=== PATIENT | male | born 1985 | race Caucasian/White ===

== ENCOUNTER 2018-04-01 04:01 | Inpatient (IN) | payer SELFPAY ==
[~2018-04-01] VITALS: Ht 175.3 cm; Wt 81.8 kg
[2018-04-01 05:11] LABS: BASOPHILS 0.2 % (0-2); EOSINOPHILS 0.3 % (0-7); HEMATOCRIT 39.4 % (42.0-54.0); HEMOGLOBIN 13.6 g/dL (13.5-17.5); IMMATURE GRANULOCYTES 0.4 % (0-5); LYMPHOCYTES 10.7 % (15-50); MCHC 34.5 g/dL (31.0-37.0); MCV 86.8 fL (80.0-100.0); MEAN PLATELET VOLUME 9.3 fL (7.4-10.4); MONOCYTES 9.9 % (2-11); NEUTROPHILS 78.5 % (40-80); PLATELET COUNT 278 10x3/uL (130-400); RBC 4.54 10x6/uL (4.20-6.10); RDW 13.3 % (11.5-14.5); WBC 18.3 10x3/uL (4.8-10.8)
[2018-04-01 05:32] LABS: ALBUMIN 3.2 g/dL (3.4-5.0); ALKALINE PHOSPHATASE 72 U/L (46-116); ALT (SGPT) 30 U/L (10-68); BILIRUBIN - TOTAL 1.14 mg/dL (0.2-1.3); CALC OSMOLALITY 269 mosm/kg (275-300); CARBON DIOXIDE 28.1 mmol/L (21.0-32.0); CHLORIDE - SERUM 97 mmol/L (98-107); CREATININE - SERUM 0.9 mg/dL (0.6-1.3); GLUCOSE 118 mg/dL (74-106); POTASSIUM - SERUM 3.6 mmol/L (3.5-5.1); PROTEIN - SERUM 7.3 g/dL (6.4-8.2); SODIUM 132 mmol/L (136-145); UREA NITROGEN 25 mg/dL (7-18); eGFR NON AFRICAN AMERICAN > 90 mL/min (90-120)
[2018-04-01 10:53] VITALS: BP 132/80
[2018-04-01 16:04] VITALS: BP 152/55
[2018-04-01 20:52] VITALS: BP 105/69
[2018-04-02 03:43] VITALS: BP 122/82
[2018-04-02 04:42] VITALS: BP 105/69; Ht 175.3 cm; Wt 81.8 kg
[2018-04-02 05:58] LABS: BASOPHILS 0.2 % (0-2); EOSINOPHILS 0.8 % (0-7); HEMATOCRIT 37.6 % (42.0-54.0); HEMOGLOBIN 12.9 g/dL (13.5-17.5); IMMATURE GRANULOCYTES 0.6 % (0-5); LYMPHOCYTES 7.9 % (15-50); MCHC 34.3 g/dL (31.0-37.0); MCV 87.4 fL (80.0-100.0); MEAN PLATELET VOLUME 9.7 fL (7.4-10.4); NEUTROPHILS 81.5 % (40-80); PLATELET COUNT 272 10x3/uL (130-400); RDW 13.7 % (11.5-14.5)
[2018-04-02 06:31] LABS: ALBUMIN 2.4 g/dL (3.4-5.0); ALKALINE PHOSPHATASE 70 U/L (46-116); BILIRUBIN - TOTAL 0.73 mg/dL (0.2-1.3); CARBON DIOXIDE 26.7 mmol/L (21.0-32.0); CHLORIDE - SERUM 99 mmol/L (98-107); CREATININE - SERUM 0.7 mg/dL (0.6-1.3); GLUCOSE 146 mg/dL (74-106); POTASSIUM - SERUM 3.6 mmol/L (3.5-5.1); PROTEIN - SERUM 6.4 g/dL (6.4-8.2); SODIUM 133 mmol/L (136-145); eGFR NON AFRICAN AMERICAN > 90 mL/min (90-120)
[2018-04-02 06:32] LABS: ALT (SGPT) 21 U/L (10-68); CALC OSMOLALITY 267 mosm/kg (275-300); UREA NITROGEN 9 mg/dL (7-18)
[2018-04-02 08:43] VITALS: BP 125/79
[2018-04-02 13:16] VITALS: BP 124/77
[2018-04-02 18:06] VITALS: BP 121/78
[2018-04-02 21:02] VITALS: BP 119/72
[2018-04-03 04:00] VITALS: BP 113/71
[2018-04-03 06:05] LABS: BASOPHILS 0.1 % (0-2); EOSINOPHILS 1.3 % (0-7); HEMATOCRIT 37.9 % (42.0-54.0); HEMOGLOBIN 13.1 g/dL (13.5-17.5); LYMPHOCYTES 13.1 % (15-50); MCH 30.3 pg (26.0-34.0); MCHC 34.6 g/dL (31.0-37.0); MCV 87.7 fL (80.0-100.0); MEAN PLATELET VOLUME 9.7 fL (7.4-10.4); MONOCYTES 8.6 % (2-11); NEUTROPHILS 75.9 % (40-80); PLATELET COUNT 266 10x3/uL (130-400); RBC 4.32 10x6/uL (4.20-6.10); RDW 13.5 % (11.5-14.5); WBC 15.6 10x3/uL (4.8-10.8)
[2018-04-03 06:24] LABS: ALBUMIN 2.2 g/dL (3.4-5.0); ALKALINE PHOSPHATASE 61 U/L (46-116); ALT (SGPT) 16 U/L (10-68); BILIRUBIN - TOTAL 0.49 mg/dL (0.2-1.3); CALC OSMOLALITY 269 mosm/kg (275-300); CALCIUM 8.3 mg/dL (8.5-10.1); CARBON DIOXIDE 27.3 mmol/L (21.0-32.0); CHLORIDE - SERUM 103 mmol/L (98-107); GLUCOSE 107 mg/dL (74-106); POTASSIUM - SERUM 3.8 mmol/L (3.5-5.1); PROTEIN - SERUM 6.4 g/dL (6.4-8.2); SODIUM 136 mmol/L (136-145); UREA NITROGEN 7 mg/dL (7-18)
[2018-04-03 06:26] LABS: CREATININE - SERUM 0.9 mg/dL (0.6-1.3); eGFR NON AFRICAN AMERICAN > 90 mL/min (90-120)
[2018-04-03 09:21] VITALS: BP 122/75
[2018-04-03 12:38] VITALS: BP 125/78
[2018-04-03 21:36] VITALS: BP 124/79
[2018-04-04 06:03] LABS: BASOPHILS 0.4 % (0-2); EOSINOPHILS 2.5 % (0-7); HEMATOCRIT 38.2 % (42.0-54.0); IMMATURE GRANULOCYTES 2.7 % (0-5); LYMPHOCYTES 15.1 % (15-50); MCH 29.8 pg (26.0-34.0); MCV 87.6 fL (80.0-100.0); MEAN PLATELET VOLUME 9.5 fL (7.4-10.4); MONOCYTES 8.7 % (2-11); NEUTROPHILS 70.6 % (40-80); RBC 4.36 10x6/uL (4.20-6.10); RDW 13.5 % (11.5-14.5)
[2018-04-04 06:29] LABS: PLATELET COUNT 328 10x3/uL (130-400)
[2018-04-04 06:30] LABS: ALBUMIN 2.2 g/dL (3.4-5.0); ALKALINE PHOSPHATASE 66 U/L (46-116); ALT (SGPT) 22 U/L (10-68); BILIRUBIN - TOTAL 0.34 mg/dL (0.2-1.3); CALC OSMOLALITY 272 mosm/kg (275-300); CALCIUM 8.3 mg/dL (8.5-10.1); CARBON DIOXIDE 27.4 mmol/L (21.0-32.0); CHLORIDE - SERUM 103 mmol/L (98-107); CREATININE - SERUM 0.7 mg/dL (0.6-1.3); GLUCOSE 112 mg/dL (74-106); POTASSIUM - SERUM 3.6 mmol/L (3.5-5.1); PROTEIN - SERUM 6.7 g/dL (6.4-8.2); SODIUM 137 mmol/L (136-145); UREA NITROGEN 6 mg/dL (7-18); eGFR NON AFRICAN AMERICAN > 90 mL/min (90-120)
[2018-04-04] MEDS ORDERED: HYDROCODON-ACE1 EAC7 PO (08:32)
[2018-04-04] MEDS ORDERED: KEFLEX500 MG PO (08:32)
[2018-04-04 08:40] VITALS: BP 119/76
[2018-04-04 12:19] VITALS: BP 116/75
== END 2018-04-04 12:40 | disposition home or self-care (01) | DRG 501 ==
LOC: D.ER 04:01 → D.EDHOLD 12:16 → D.MS 12:16
PROVIDERS: Family Medicine; Family Medicine Adult Medicine
PROC: 0M930ZZ Drainage of Right Elbow Bursa and Ligament, Open Approach (ICD-10-PCS; principal; 2018-04-01)
DX: M71.121 Other infective bursitis, right elbow (principal); S42.441A Displaced fracture (avulsion) of medial epicondyle of right humerus, initial encounter for closed fracture; F17.213 Nicotine dependence, cigarettes, with withdrawal; V00.131A Fall from skateboard, initial encounter; B95.1 Streptococcus, group B, as the cause of diseases classified elsewhere; B95.61 Methicillin susceptible Staphylococcus aureus infection as the cause of diseases classified elsewhere

== ENCOUNTER 2018-05-12 17:12 | Emergency (ER) | payer SELFPAY ==
[~2018-05-12] VITALS: Ht 175.3 cm; Wt 79.5 kg
[~2018-05-12 17:12] MED LIST: HYDROCODON-ACE1 EAC7 PO; KEFLEX500 MG PO
[2018-05-12 17:24] VITALS: Ht 175.3 cm; Wt 79.5 kg
[2018-05-12] MEDS ORDERED: VOLTAREN75 MG PO (18:24)
[2018-05-12] MEDS ORDERED: VIBRAMYCIN 100100 MG PO (18:24)
[2018-05-12 19:28] VITALS: BP 145/95
== END 2018-05-12 19:29 | disposition home or self-care (01) ==
LOC: D.ER 17:12
DX: L03.113 Cellulitis of right upper limb (principal); F17.200 Nicotine dependence, unspecified, uncomplicated

== ENCOUNTER 2018-07-18 11:55 | Emergency (ER) | payer SELFPAY ==
[~2018-07-18] VITALS: Ht 175.3 cm; Wt 81.8 kg
[~2018-07-18 11:55] MED LIST changes: +VIBRAMYCIN 100100 MG PO; +VOLTAREN75 MG PO
[2018-07-18 12:51] VITALS: BP 128/88; Ht 175.3 cm; Wt 81.8 kg
[2018-07-18 16:47] LABS: BASOPHILS 0.2 % (0-2); EOSINOPHILS 2.4 % (0-7); HEMATOCRIT 36.6 % (42.0-54.0); HEMOGLOBIN 12.3 g/dL (13.5-17.5); IMMATURE GRANULOCYTES 0.2 % (0-5); LYMPHOCYTES 20.2 % (15-50); MCH 29.4 pg (26.0-34.0); MCHC 33.6 g/dL (31.0-37.0); MCV 87.4 fL (80.0-100.0); MONOCYTES 7.5 % (2-11); NEUTROPHILS 69.5 % (40-80); RBC 4.19 10x6/uL (4.20-6.10); RDW 13.4 % (11.5-14.5); WBC 9.5 10x3/uL (4.8-10.8)
[2018-07-18 16:49] LABS: PLATELET COUNT 240 10x3/uL (130-400)
[2018-07-18] MEDS ORDERED: VOLTAREN75 MG PO (17:05)
[2018-07-18] MEDS ORDERED: BACTRIM 400-801 TAB PO (17:05)
[2018-07-18] MEDS ORDERED: TYLENOL W/CODEI1 TAB PO (17:05)
== END 2018-07-18 17:37 | disposition home or self-care (01) ==
LOC: D.ER 11:55
PROVIDERS: Emergency Medicine
DX: L02.511 Cutaneous abscess of right hand (principal); F17.200 Nicotine dependence, unspecified, uncomplicated

== ENCOUNTER 2019-04-01 16:07 | Emergency (ER) | payer OTHER ==
[~2019-04-01] VITALS: Ht 175.3 cm; Wt 68.2 kg
[~2019-04-01 16:07] MED LIST changes: +BACTRIM 400-801 TAB PO; +TYLENOL W/CODEI1 TAB PO
[2019-04-01 16:09] VITALS: Ht 175.3 cm; Wt 68.2 kg
[2019-04-01 17:06] LABS: HEMATOCRIT 51.7 % (42.0-54.0); HEMOGLOBIN 18.1 g/dL (13.5-17.5); MCH 29.4 pg (26.0-34.0); MCV 83.9 fL (80.0-100.0); MEAN PLATELET VOLUME 9.5 fL (7.4-10.4); PLATELET COUNT 340 10x3/uL (130-400); RBC 6.16 10x6/uL (4.20-6.10); RDW 13.3 % (11.5-14.5); WBC 21.9 10x3/uL (4.8-10.8)
[2019-04-01 17:11] LABS: ALBUMIN 5.4 g/dL (3.4-5.0); ANION GAP 26.7 mmol/L (8-16); BILIRUBIN - TOTAL 1.53 mg/dL (0.2-1.3); CARBON DIOXIDE 18.6 mmol/L (21.0-32.0); CREATININE - SERUM 2.4 mg/dL (0.6-1.3); MAGNESIUM - SERUM 3.2 mg/dL (1.8-2.4); POTASSIUM - SERUM 3.3 mmol/L (3.5-5.1); PROTEIN - SERUM 11.1 g/dL (6.4-8.2)
[2019-04-01 17:15] LABS: CALCIUM 12.3 mg/dL (8.5-10.1)
[2019-04-01 17:36] LABS: UDS - AMPHET POSITIVE QUAL (NEGATIVE); UDS - BARB NEGATIVE QUAL (NEGATIVE); UDS - BENZO NEGATIVE QUAL (NEGATIVE); UDS - COCAINE NEGATIVE QUAL (NEGATIVE); UDS - OPIATE NEGATIVE QUAL (NEGATIVE); UDS - PCP NEGATIVE QUAL (NEGATIVE); UDS - THC NEGATIVE QUAL (NEGATIVE)
--- NOTE | 2019-04-01 17:36 | NUR ---
DR. MONTE NOTIFIED AND REVIEWED PATIENT'S BEHAVIOR AND ASSESSMENT RESULTS. PATIENT IS A LOW RISK PER DR. MONTE. DR. MONTE STATED TO GIVE RESOURES TO PATIENT. MO FURTHER ORDERS AT THIS TIME. RESOURCES REVIEWED WITG PATIENT AND HE VERBALIZES UNDERSTANDING.
[2019-04-01 17:41] LABS: APPEARANCE CLEAR (CLEAR); BILIRUBIN NEGATIVE (NEGATIVE); COLOR YELLOW (YELLOW); GLUCOSE NEGATIVE (NEGATIVE); KETONE NEGATIVE (NEGATIVE); NITRITE NEGATIVE (NEGATIVE); PROTEIN NEGATIVE (NEGATIVE); SPECIFIC GRAVITY 1.025 (1.005-1.020); UROBILINOGEN NORMAL (NORMAL)
[2019-04-01 18:31] LABS: EOSINOPHILS 2 % (0-7); LYMPHOCYTES 31 % (15-50); MONOCYTES 1 % (2-11); NEUTROPHILS 65 % (40-80); PLATELET ESTIMATE NORMAL
[2019-04-01 20:54] VITALS: BP 123/78
== END 2019-04-01 20:55 | disposition home or self-care (01) ==
LOC: D.ER 16:07
PROVIDERS: Family Medicine
DX: E86.0 Dehydration (principal); F15.10 Other stimulant abuse, uncomplicated; F17.210 Nicotine dependence, cigarettes, uncomplicated

== ENCOUNTER 2019-04-02 15:32 | Emergency (ER) | payer OTHER ==
[~2019-04-02] VITALS: Ht 175.3 cm; Wt 81.8 kg
[2019-04-02 15:38] VITALS: BP 115/73; Ht 175.3 cm; Wt 81.8 kg
== END 2019-04-02 16:35 | disposition home or self-care (01) ==
LOC: D.ER 15:32
DX: F19.10 Other psychoactive substance abuse, uncomplicated (principal); F17.200 Nicotine dependence, unspecified, uncomplicated

== ENCOUNTER 2019-04-26 19:19 | Inpatient (IN) | payer OTHER ==
[~2019-04-26] VITALS: Ht 175.3 cm; Wt 71.5 kg
[2019-04-26 19:45] LABS: BASOPHILS 0.2 % (0-2); EOSINOPHILS 0 % (0-7); HEMATOCRIT 48.4 % (42.0-54.0); HEMOGLOBIN 17.3 g/dL (13.5-17.5); IMMATURE GRANULOCYTES 0.6 % (0-5); LYMPHOCYTES 11.5 % (15-50); MCH 29.5 pg (26.0-34.0); MCHC 35.7 g/dL (31.0-37.0); MCV 82.6 fL (80.0-100.0); MEAN PLATELET VOLUME 9.3 fL (7.4-10.4); MONOCYTES 7.9 % (2-11); NEUTROPHILS 79.8 % (40-80); PLATELET COUNT 266 10x3/uL (130-400); RBC 5.86 10x6/uL (4.20-6.10); RDW 13.2 % (11.5-14.5)
[2019-04-26 19:59] LABS: ALBUMIN 5.5 g/dL (3.4-5.0); ALKALINE PHOSPHATASE 110 U/L (46-116); ALT (SGPT) 30 U/L (10-68); BILIRUBIN - TOTAL 1.54 mg/dL (0.2-1.3); CALC OSMOLALITY 292 mosm/kg (275-300); CALCIUM 11.1 mg/dL (8.5-10.1); CARBON DIOXIDE 27.3 mmol/L (21.0-32.0); CHLORIDE - SERUM 99 mmol/L (98-107); CREATININE - SERUM 3.1 mg/dL (0.6-1.3); GLUCOSE 117 mg/dL (74-106); POTASSIUM - SERUM 4.6 mmol/L (3.5-5.1); PROTEIN - SERUM 10.5 g/dL (6.4-8.2); SODIUM 142 mmol/L (136-145); UREA NITROGEN 39 mg/dL (7-18); eGFR NON AFRICAN AMERICAN 24 mL/min (90-120)
[2019-04-26 20:19] LABS: CREATINE KINASE 512 UL (21-232)
[2019-04-26 20:21] LABS: CKMB 6.9 U/L (0.0-3.6)
[2019-04-26 21:52] LABS: APPEARANCE CLEAR (CLEAR); COLOR YELLOW (YELLOW); SPECIFIC GRAVITY 1.025 (1.005-1.020)
[2019-04-26 21:54] LABS: GLUCOSE NEGATIVE (NEGATIVE); KETONE SMALL mg/dL (NEGATIVE); NITRITE NEGATIVE (NEGATIVE); PROTEIN TRACE mg/dL (NEGATIVE); UROBILINOGEN NORMAL (NORMAL)
[2019-04-26 21:55] LABS: BILIRUBIN NEGATIVE (NEGATIVE); UDS - AMPHET POSITIVE QUAL (NEGATIVE); UDS - BARB NEGATIVE QUAL (NEGATIVE); UDS - BENZO NEGATIVE QUAL (NEGATIVE); UDS - COCAINE NEGATIVE QUAL (NEGATIVE); UDS - OPIATE NEGATIVE QUAL (NEGATIVE); UDS - PCP NEGATIVE QUAL (NEGATIVE); UDS - THC NEGATIVE QUAL (NEGATIVE)
[2019-04-26 22:01] VITALS: BP 125/85
--- NOTE | 2019-04-26 22:20 | NUR ---
PT ARRIVED VIA W/C FROM ER DX ACUTE RENAL FAILURE AND DEHYDRATION. NO DISTRESS NOTED. PT ALERT AND ORIENTED TO PERSON,PLACE AND TIME. HART. IV TO LFA WITHNSAT 200CC/HR. IV PATENT. GRIPPER SOCKS GIVEN TO PT. CALL LIGHT WITHIN REACH.
[2019-04-26 22:55] VITALS: BP 125/85; Ht 175.3 cm; Wt 71.5 kg
--- NOTE | 2019-04-27 00:17 | NUR ---
PT BACK FORM DIALYSIS AT 2000 HRS. PT GROANING AND MOANING. STATES HAVING BLADDER SPASMS. [address] WAY IRRIGATION IN PROGRESS DRAINING PINK URINE. IV TO RFA SL. L ARM FISTULA WITH GOOD BRUIT AND THRILL. DITROPAN PO GIVEN FOR BLADDER SPASMS. ASSESSMENT COMPLETED AT THAT TIME. ALERT AND ORIENTED TO PERSON, PLACE AND TIME. HART. LUNGS DIMINISHED IN BASES BILAT. PT MUMBLES. PM FSBS 185. INSULIN HELD PT NOT EATING. PT BEGAN MOANING IN PAIN AT 2140 HRS. STATES HE NEEDED HIS CATHETER MANUALLY FLUSHED HE IS FEELING PRESSURE BUILDING UP. ATTEMPTED TO FLUSH MANUALY AND RESISTANCE NOTED. ATTEMPTED TO DRAW BACK WITHOUT SUCCESS. BLOODY URINE. LEAKING AROUND CATHETER. PEANUT SHAKER CALLED FOR ANOTHER [address] PATEL NOTIFIED OF CATHETER CLOTTING OFF AND WILL CAHNGE CATHETER OUT. DR PATEL STATED TO MAKE NPO AFTER MIDNIGHT TO REMOVED CLOTS IN AM. PT INFORMED NPO AFTER MISNINGT FOR CLOT REMOVAL IN AM. PT STATED UNDERSTANDING. 24FR 3 WAY REMOVED AND LARGE CLOT NOTED. 22FR [address] WAY PLACED USING STERILE TECHNIQUE WITH BLOODY URINE RETURN. CONTINUOUS IRRIGATION RESTATED. PT CURRENTLY RESTING WITH EYES CLOSED. RESP EVEN AND REGULAR. SR UP X2, CALL LIGHT WITHIN REACH.
--- NOTE | 2019-04-27 00:47 | NUR ---
ADMISSION ASSESSMENT, HISTORY AND HOME MED LIST COMPLETED BY 2315 HRS. PT DENIES ANY DISCOMFORT. IV TO LFA WITH NS AT 200CC/HR. IV PATENT. ALERT AND ORIENTED TO PERSON,PLACE AND TIME. HART. SR PER CM HR 72. LUNGS CTA. VSS. PT CURRENTLY WALKING AROUND UNIT. NO DISTRESS NOTED.
--- NOTE | 2019-04-27 02:16 | NUR ---
ICE CREAM X2 GIVEN PER REQUEST. DENIES ANY DISCOMFORT. SR UP X2,CALL LIGHT WITHIN REACH.
--- NOTE | 2019-04-27 04:01 | NUR ---
PT AWAKE; DENIES ANY DISCOMFORT. DENIES ANY URINATION SINCE ARRIVING ON FLOOR. CALL LIGHT WITHIN REACH.
[2019-04-27 05:55] LABS: BASOPHILS 0.2 % (0-2); EOSINOPHILS 0.1 % (0-7); HEMATOCRIT 39.5 % (42.0-54.0); HEMOGLOBIN 14.2 g/dL (13.5-17.5); IMMATURE GRANULOCYTES 0.3 % (0-5); LYMPHOCYTES 20.4 % (15-50); MCH 29.5 pg (26.0-34.0); MCHC 35.9 g/dL (31.0-37.0); MCV 82.1 fL (80.0-100.0); MEAN PLATELET VOLUME 9.5 fL (7.4-10.4); MONOCYTES 9.6 % (2-11); NEUTROPHILS 69.4 % (40-80); PLATELET COUNT 253 10x3/uL (130-400); RBC 4.81 10x6/uL (4.20-6.10); RDW 13.2 % (11.5-14.5); WBC 17.6 10x3/uL (4.8-10.8)
--- NOTE | 2019-04-27 06:11 | NUR ---
PT STATES STILL DOES NOT HAVE THE URGE TO URINATE. DENIES ANY DISCOMFORT. NEEDS MET; WILL CONTINUE TO MONITOR.
[2019-04-27 06:24] LABS: CALC OSMOLALITY 283 mosm/kg (275-300); CALCIUM 9.3 mg/dL (8.5-10.1); CARBON DIOXIDE 25.6 mmol/L (21.0-32.0); CHLORIDE - SERUM 100 mmol/L (98-107); CKMB 7.7 U/L (0.0-3.6); CREATINE KINASE 586 UL (21-232); CREATININE - SERUM 1.4 mg/dL (0.6-1.3); GLUCOSE 140 mg/dL (74-106); MAGNESIUM - SERUM 2.3 mg/dL (1.8-2.4); PHOSPHOROUS 3.4 mg/dL (2.5-4.9); POTASSIUM - SERUM 3.9 mmol/L (3.5-5.1); SODIUM 137 mmol/L (136-145); TROPONIN-I < 0.017 ng/mL (0.000-0.060); UREA NITROGEN 36 mg/dL (7-18); eGFR NON AFRICAN AMERICAN 61 mL/min (90-120)
--- NOTE | 2019-04-27 07:41 | NUR ---
PT RESTING, EYES CLOSED. RR EVEN AND UNLABORED. DENIES NEEDS OR PAIN AT THIS TIME. WILL CONTINUE TO MONITOR
--- NOTE | 2019-04-27 08:25 | NUR ---
IV LEAKING, D/C WITH CATHETER TIP INTACT. 20G RESITED TO LEFT LOWER FOREARM.
--- NOTE | 2019-04-27 08:26 | NUR ---
UPON WALKING IN ROOM, NOTICED BED WAS UNLOCKED. BED LOCK SECURED. PT STATED HE UNLOCKED SO HE COULD MOVE IT AROUND.
[2019-04-27 08:45] VITALS: BP 110/63
--- NOTE | 2019-04-27 10:12 | NUR ---
PT REQUESTED TO GO AMA. NOTIFIED OF RISKS AND INSURANCE ISSUES IF LEFT. PT STILL WANTED TO LEAVE. IV D/C WITH CATHETER TIP INTACT. JIMENA RESTREPO APRN NOTIFIED. ASKED IF PT WANTED A WHEELCHAIR OUT, PT DENIED WHEELCHAIR. PT STATED HE WAS NOT ANGRY ABOUT THE CARE HE RECIEVED HE JUST WANTED TO GO HOME.
--- NOTE | 2019-04-27 12:18 | NUR ---
PT REQUESTED TO GO AMA. NOTIFIED OF RISKS AND INSURANCE ISSUES IF LEFT. PT STILL WANTED TO LEAVE. IV D/C WITH CATHETER TIP INTACT. JIMENA RESTREPO APRN NOTIFIED. ASKED IF PT WANTED A WHEELCHAIR OUT, PT DENIED WHEELCHAIR. NO MONITOR NOTED ON PT WHEN HE LEFT. PT LEFT IN PAPER SCRUB BOTTOMS WITH NO TOP,WHEN ASKED IF HE WANTED A TOP HE SAID NO. PT STATED HE WAS NOT ANGRY ABOUT THE CARE HE RECIEVED HE JUST WANTED TO GO HOME.
--- NOTE | 2019-04-27 12:37 | NUR ---
TELEMETRY UNIT NOT FOUND. [employer] HAS BEEN NOTIFIED PER RESEARCH MICROBIOLOGIST.
--- NOTE | 2019-04-29 09:20 | MORECARE ---
CASE MANAGEMENT DISCHARGE SUMMARY PATIENT: MATTIE EASTON UNIT: [id number] ADM DATE: 04/26/19 AGE: 33 : 81 SEX: M ROOM/BED: D.2133 AUTHOR: EZEQUIEL SORIA PHYSICIAN: REFERRING PHYSICIAN: EMILY MAI MD DATE OF SERVICE: 04/29/19 Discharge Plan Patient Name: MATTIE EASTON Facility: [facility]:[place] : 1985 Planned Disposition: Left Against Medical Advice Anticipated Discharge Date: 04/27/19 Discharge Date: 04/27/2019 Expected LOS: 1 Initial Reviewer: [email or web address] Initial Review Date: 04/29/2019 Generated: 04/29/19 10:20 am Patient Name: MATTIE EASTON Page [id number] at 0920 All edits/amendments must be made on the electronic document DICTATION DATE: 04/29/19919 AUTOMOTIVE MANAGER: FAUSTINO 04/29/19919 RPT#: [id number] DC DATE:04/27/19 STATUS: DIS IN [facility] [address] [place] [address] END OF REPORT
== END 2019-04-27 10:15 | disposition left against medical advice (07) | DRG 923 ==
LOC: D.ER 19:19 → D.M2 21:07
PROVIDERS: Family Medicine; ADMIT Family Medicine; ATTEND Family Medicine
DX: T67.5XXA Heat exhaustion, unspecified, initial encounter (principal); N17.9 Acute kidney failure, unspecified; X58.XXXA Exposure to other specified factors, initial encounter